=== PATIENT | male | born 1975 | race American Indian/Alaskan Native ===

== ENCOUNTER 2020-03-28 23:26 | Emergency (ER) | payer OTHER, SELFPAY ==
[2020-03-28 23:30] VITALS: BP 125/84; PULSE 81; RESP 16; TEMP 36.9; O2SAT 100; O2SAT 97
[2020-03-28 23:35] VITALS: BMI 29.2
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
[2020-03-29] VITALS: PULSE 78; O2SAT 95
[2020-03-29] MEDS: HYDROCODONE/ACET 5/325 TABLET 1 TAB PO (00:16)
[2020-03-29 00:19] VITALS: BP 119/78; PULSE 74; RESP 16; O2SAT 97
== END 2020-03-29 00:20 | disposition home or self-care (01) ==
PROVIDERS: Emergency Provider Emergency Medicine
DX: S20.211A Contusion of right front wall of thorax, initial encounter (principal); R07.89 Other chest pain
CPT/HCPCS: 71101; 99283

== ENCOUNTER 2020-09-17 00:42 | Emergency (ER) | payer OTHER, SELFPAY ==
[2020-09-17 00:45] VITALS: BP 127/80; PULSE 83; RESP 18; TEMP 36.4; O2SAT 97
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
[2020-09-17 00:54] VITALS: PULSE 75; RESP 17; O2SAT 95
[2020-09-17 01:00] VITALS: BP 110/73; PULSE 75; RESP 18; O2SAT 93
[2020-09-17 01:02] LABS: Hematocrit 39.5 % (41-53); Hemoglobin 13.3 g/dL (13.5-17.5); Mean Corpuscular HGB Conc 33.7 % (30-36); Mean Corpuscular Hemoglobin 30.1 PG (26-34); Mean Corpuscular Volume 89.3 fL (80-100); Platelet Count 325 X10^3/uL (150-400); Red Blood Cell Count 4.42 X10^6/uL (4.5-5.9); Red Cell Distribution Width 13.2 % (11.6-14.8); White Blood Cell Count 16.7 X10^3/uL (4.5-11.0)
[2020-09-17 01:03] LABS: Add Manual Diff / Slide Review YES
[2020-09-17 01:05] LABS: Alanine Aminotransferase 29 IU/L (<50); Albumin 4.4 g/dL (3.5-5.0); Albumin Globulin Ratio 1.4 (1.0-2.8); Alkaline Phosphatase 72 U/L (38-126); Aspartate Aminotransferase 64 IU/L (17-59); BUN Creatinine Ratio 9.6 (6-22); Bilirubin Total 0.3 mg/dL (0.2-1.3); Blood Urea Nitrogen 9 mg/dL (9-20); Calcium 8.6 mg/dL (8.4-10.2); Carbon Dioxide 33 mmol/L (22-32); Chloride 101 mmol/L (98-107); Estimated Glomerular Filt Rate > 60.0 mL/min (>60); Globulin 3.1 g/dL (1.7-4.1); Glucose 211 mg/dL (70-100); HEMOLYSIS 28 (0-50); Lipase 61 U/L (23-300); Potassium 3.2 mmol/L (3.4-5.1); Sodium 137 mmol/L (137-145); Total Protein 7.5 g/dL (6.3-8.2)
[2020-09-17 01:30] VITALS: BP 100/65; PULSE 78; RESP 12; O2SAT 93
[2020-09-17 01:47] LABS: Neutrophils Absolute Manual 6179 /uL (3000-5900); RBC Morphology Normal Morphology; Total Cells Counted 100
== END 2020-09-17 02:11 | disposition home or self-care (01) ==
PROVIDERS: Emergency Provider Emergency Medicine
DX: R55 Syncope and collapse (principal); R42 Dizziness and giddiness; R41.82 Altered mental status, unspecified; R07.89 Other chest pain
CPT/HCPCS: 71045; 80053; 83690; 85007; 85025; 93005; 99283; 99284

== ENCOUNTER 2021-09-11 10:02 | Emergency (ER) | payer SELFPAY ==
[2021-09-11 10:05] VITALS: BP 139/73; PULSE 69; RESP 18; TEMP 36.7; O2SAT 99; BMI 24.3
--- NOTE | 2021-09-11 10:13 | ED.BACK ---
HPI - Back Pain/Injury General Chief Complaint: Back Pain/Injury Stated Complaint: Lower rt back pain- leg burning/numb Time Seen by Provider: 09/11/21 10:05 History of Present Illness HPI Narrative: 46-year-old male nonsmoker with history of lumbar spinal stenosis presents with significant other and a chief complaint of severe right lumbar pain with radiation down his right leg. He states it is burning and stabbing and a 10/10. It is much worse when he moves and improves some with rest. He denies any loss of control of bowel or bladder. He denies any footdrop but feels like his leg maybe week. He states that a few days ago he sneezed and felt a pop in his back and has had increasing pain ever since. He denies any significant trauma nor bending, lifting or twisting. He does not take blood thinners. He has had no fever or chills. Related Data Previous Rx's Medication Instructions Recorded cyclobenzaprine 10 mg tablet 10 mg PO TID PRN #14 tab 09/11/21 gabapentin 300 mg capsule 300 mg PO BEDTIME #14 cap 09/11/21 hydrocodone 5 mg-acetaminophen 325 1 tab PO Q4-6H PRN #10 tab 09/11/21 mg tablet ketorolac 10 mg tablet 10 mg PO Q6H PRN #14 tab 09/11/21 methylprednisolone 4 mg tablets in See Rx Instructions .ROUTE 09/11/21 a dose pack (Medrol (Colt)) .COMPLEX #21 ea Allergies Allergy/AdvReac Type Severity Reaction Status Date / Time No Known Drug Allergies Allergy Verified 09/11/21 10:15 Review of Systems Review of Systems Narrative: GENERAL: Denies chills, fatigue, malaise, fever, sweats. HEENT: Denies sinus pain, ear pain, sore throat, difficulty swallowing, dizziness. RESPIRATORY: Denies dyspnea, cough, wheezing, hemoptysis, sputum. CARDIOVASCULAR: Denies chest pain, palpitations, orthopnea, edema, GASTROINTESTINAL: Denies nausea, vomiting, abdominal pain, diarrhea, constipation, melena. : Denies dysuria, frequency, incontinence, hematuria, urinary retention. MUSCULOSKELETAL: See HPI SKIN: Denies rash, skin lesions, or other NEUROLOGIC: See HPI PSYCHIATRIC: No concerning psychosocial issues. 12 point review of systems is negative except for those stated above Patient History Medical History (Updated 09/11/21 @ 10:42 by Douglas Lewis DO) Spinal stenosis Social History Smoking Status: Never smoker Smoking Status: Never smoker alcohol intake frequency: 0-2 drinks per day Substance Use Type: marijuana Exam Narrative Exam Narrative: GENERAL: [46 year old patient appears stated age. Well-developed patient, in obvious pain, walking very slowly, using wheelchair as a walker HEAD: Atraumatic. Normocephalic. EYES: Pupils equal round and reactive. Extraocular motions intact. No scleral icterus. No injection or drainage. ENT: Nose without bleeding, purulent drainage. Throat without erythema, tonsillar hypertrophy or exudate. Airway patent. NECK: Trachea midline. Non tender CARDIOVASCULAR: Regular rate and rhythm without murmurs, gallops, or rubs. RESPIRATORY: Clear to auscultation. Breath sounds equal bilaterally. No wheezes, rales, or rhonchi. GASTROINTESTINAL: Abdomen soft, non-tender, nondistended. EXTREMITIES: No edema or joint tenderness. BACK: cut off saw tender metal but free of any obvious external abnormalities. Patient exam notes decreased range of motion and muscle spasm, but no CVA tenderness, or vertebral point tenderness. Patient complains of decreased sensation of anterior right thigh extending down to his knee. Muscle strength 5/5 bilaterally. Straight leg raise elicits significant pain at 30?. No saddle anesthesia. Right patellar reflex slightly diminished NEURO: AOx3. SKIN: No rash or erythema of visible areas Initial Vital Signs Initial Vital Signs: Vital Signs Temperature 98.1 F 09/11/21 10:05 Pulse Rate 69 09/11/21 10:05 Respiratory Rate 18 09/11/21 10:05 Blood Pressure 139/73 09/11/21 10:05 Pulse Oximetry 99 09/11/21 10:05 Course Orders Ordered: ED Orders 09/11/21 10:16 MR lumbar spine wo con Stat Discontinued Medications Dexamethasone (Dexamethasone 10 Mg/Ml Vial) 10 mg PO NOW ONE Stop: 09/11/21 10:14 Last Admin: 09/11/21 10:18 Dose: 10 mg Documented by: JOÃO Gabapentin (Gabapentin 300 Mg Capsule) 300 mg PO NOW ONE Stop: 09/11/21 10:14 Last Admin: 09/11/21 10:18 Dose: 300 mg Documented by: JOÃO Oxycodone/Acetaminophen (Oxycodone/Acetaminophen 5/325 Tablet) 1 tab PO NOW ONE Stop: 09/11/21 10:14 Last Admin: 09/11/21 10:18 Dose: 1 tab Documented by: JOÃO Vital Signs Vital signs: Vital Signs - 8 hr 09/11/21 10:05 09/11/21 11:34 Temperature 98.1 F Pulse Rate 69 68 Respiratory Rate 18 14 Blood Pressure 139/73 139/73 Pulse Oximetry 99 96 MDM - Back Pain/Injury Imaging Data Lumbar MRI: Radiologist's Impression: Launch?[address] [address] Magnetic Resonance Report Signed Patient: Lauri Richmond MR#: [id number] : 1975 Acct:[id number] Age/Sex: 46 / M Date of Service: 09/11/21 Loc: ED Accession Number: [id number] ?? Procedure: MR lumbar spine wo con Ordering Provider: Douglas Lewis D.O. PROCEDURE:? MR LUMBAR SPINE WO CON ? INDICATIONS:? lumbar radiculopathy, RLE weak, numb, decreased reflex ? TECHNIQUE:? Noncontrast sagittal T1 spin echo and T2 fast echo, sagittal STIR, axial T1 and T2 fast spin echo through the lumbar spine.? In cases with scoliosis, additional coronal T2 fast spin echo may be performed.? ? COMPARISON:? None. ? FINDINGS:? Image quality:? Excellent.? ? Alignment and Curvature:? There is normal bony alignment.? ? Bone Marrow:? Marrow is of normal overall signal.? No acute vertebral body compression fractures.? ? Spinal Cord:? Conus medullaris terminates at the L1 level.? Visualized cord demonstrates normal signal and size.? ? Paraspinous Soft Tissues:? No paravertebral masses.? ? T12-L1:? No significant disc bulge. The foramina and central canal are patent. ? L1-L2:? No significant disc bulge. The foramina and central canal are patent. ? L2-L3:? No significant disc bulge. The foramina and central canal are patent. ? L3-L4:? Diffuse disc bulge causes mild bilateral foraminal stenosis.? No central canal stenosis. ? L4-L5:? The disc is desiccated consistent with degenerative changes.? Diffuse disc bulge causes mild bilateral foraminal stenosis.? No central canal stenosis. ? L5-S1:? Diffuse disc bulge and facet arthrosis cause mild bilateral foraminal stenosis.? No central canal stenosis. ? ? IMPRESSION:? 1. Degenerative disc disease at L4-5 and mild disc bulges at L3-4, L4-5, and L5-S1 causing mild foraminal stenosis at these levels. 2. No focal protrusion or extrusion.? No acute abnormality. 3. No abnormal cord signal. 4. No central canal stenosis.? Dictated by: Momo Meyer M.D. on 09/11/2021 at 10:55 ? ? Approved by: Momo Meyer M.D. on 09/11/2021 at 10:59 ? MDM Narrative Medical decision making narrative: Patient with reassuring history and physical exam. MRI demonstrates evidence of lumbar radiculopathy, there are no findings consistent with a neuro surgical emergency. He is able to ambulate, symptoms are improved. Patient is given return precautions and contact information for both Dr. Nelson, and Dr. Amaya, patient's questions answered to his apparent satisfaction. Discharge Plan Departure Patient Disposition: Home Clinical Impression: Acute back pain with radiculopathy Instructions: DI for Lumbar Radiculopathy Activity Restrictions/Additional Instructions: *You have been diagnosed with [acute lumbar radiculopathy] *What to do: *Please continue to take your regular medications as directed. [ x] New medication prescriptions sent to your pharmacy: [ ] [ ] New medication written as a paper prescription [ ] No new medications given *Please follow up with your primary care provider in 2-3 days, call for an appointment. Let them know you were seen in the Emergency Department and that we ask that you be seen in follow up. We will electronically transmit a record of today's note if your PCP is in our system *If you do not have a primary care provider please contact the [facility] Resource line at [phone]. They will ask some questions about your medical history and help get you set up with a doctor in the community. *Return to Emergency Department if you should have any new, worsening or concerning symptoms, such as [fever greater than 101 F, shaking chills, worsening pain, persistent vomiting or other bothersome symptoms] You have been prescribed a short course of narcotic medications. These are potentially dangerous and addictive medications that should be used carefully. While on these medications you cannot drive or operate heavy machinery. Additionally, you cannot sign legal documents or perform any duties such as this. 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 Please understand that we cannot provide further refills of narcotics or controlled substances through the ED and your pain management will need to be through your Primary Care Provider Prescriptions: New cyclobenzaprine 10 mg tablet 10 mg PO TID PRN (Reason: muscle spasm) Qty: 14 0RF hydrocodone-acetaminophen 5-325 mg tablet 1 tab PO Q4-6H PRN (Reason: pain) Qty: 10 0RF ketorolac 10 mg tablet 10 mg PO Q6H PRN (Reason: pain) Qty: 14 0RF gabapentin 300 mg capsule 300 mg PO BEDTIME Qty: 14 0RF methylprednisolone [Medrol (Colt)] 4 mg tablets,dose pack See Rx Instructions .ROUTE .COMPLEX Qty: 21 0RF Rx Instructions: orally per package directions Referrals: Natan Amaya DO [Physician] - Jillian Montes De Oca MD [Physician] -
--- NOTE | 2021-09-11 10:16 | DI.MRI.S_ITS ---
PROCEDURE: MR LUMBAR SPINE WO CON INDICATIONS: lumbar radiculopathy, RLE weak, numb, decreased reflex TECHNIQUE: Noncontrast sagittal T1 spin echo and T2 fast echo, sagittal STIR, axial T1 and T2 fast spin echo through the lumbar spine. In cases with scoliosis, additional coronal T2 fast spin echo may be performed. COMPARISON: None. FINDINGS: Image quality: Excellent. Alignment and Curvature: There is normal bony alignment. Bone Marrow: Marrow is of normal overall signal. No acute vertebral body compression fractures. Spinal Cord: Conus medullaris terminates at the L1 level. Visualized cord demonstrates normal signal and size. Paraspinous Soft Tissues: No paravertebral masses. T12-L1: No significant disc bulge. The foramina and central canal are patent. L1-L2: No significant disc bulge. The foramina and central canal are patent. L2-L3: No significant disc bulge. The foramina and central canal are patent. L3-L4: Diffuse disc bulge causes mild bilateral foraminal stenosis. No central canal stenosis. L4-L5: The disc is desiccated consistent with degenerative changes. Diffuse disc bulge causes mild bilateral foraminal stenosis. No central canal stenosis. L5-S1: Diffuse disc bulge and facet arthrosis cause mild bilateral foraminal stenosis. No central canal stenosis. IMPRESSION: 1. Degenerative disc disease at L4-5 and mild disc bulges at L3-4, L4-5, and L5-S1 causing mild foraminal stenosis at these levels. 2. No focal protrusion or extrusion. No acute abnormality. 3. No abnormal cord signal. 4. No central canal stenosis. Dictated by: Momo Meyer M.D. on 09/11/2021 at 10:55 Approved by: Momo Meyer M.D. on 09/11/2021 at 10:59
[2021-09-11] MEDS: OXYCODONE/ACETAMINOPHEN 5/325 TABLET 1 TAB PO (10:18)
[2021-09-11] MEDS: GABAPENTIN 300 MG CAPSULE PO (10:18)
[2021-09-11] MEDS: DEXAMETHASONE 10 MG/ML VIAL PO (10:18)
[2021-09-11 11:34] VITALS: BP 139/73; PULSE 68; RESP 14; O2SAT 96
[2021-09-11 12:00] VITALS: PULSE 68; O2SAT 97
== END 2021-09-11 12:35 | disposition home or self-care (01) ==
PROVIDERS: Emergency Provider Emergency Medicine
DX: M54.16 Radiculopathy, lumbar region (principal)
CPT/HCPCS: 72148; 99284; J1100